=== PATIENT | male | born 1955 ===

== ENCOUNTER 2022-11-25 14:10 | Inpatient (IN) | payer OTHER ==
[2022-11-25 16:08] VITALS: BMI 25.0
[2022-11-25] MEDS ORDERED: BENZOCAINE/MENTHOL (CHLORASEPTIC ) LOZENGE MM PRN (16:46)
[2022-11-25] MEDS ORDERED: ONDANSETRON *ODT* 4 MG TABLET SL PRN (16:46)
[2022-11-25] MEDS ORDERED: IBUPROFEN 400 MG TABLET (FP) PO PRN (16:46)
[2022-11-25] MEDS ORDERED: POLYETHYLENE GLYCOL (HEALTHYLAX) 3350 17 GM PACKET PO PRN (16:46)
[2022-11-25] MEDS ORDERED: NALOXONE HCL (KLOXXADO) 8 MG SPRAY NS PRN (16:46)
[2022-11-25] MEDS ORDERED: LOPERAMIDE HCL 2 MG CAPSULE PO PRN (16:46)
[2022-11-25] MEDS ORDERED: BISMUTH SUBSALICYLATE 524 MG/30 ML PO PRN (16:46)
[2022-11-25] MEDS ORDERED: MAGNESIUM HYDROX 2400MG/30ML ORAL SUSPENSION 30 ML CUP PO PRN (16:46)
[2022-11-25] MEDS ORDERED: MAG HYDROX/AL HYDROX/SIMETH 30 ML UNIT-DOSE CUP PO PRN (16:46)
[2022-11-25] MEDS ORDERED: ACETAMINOPHEN 325 MG TABLET (FP) PO PRN (16:46)
[2022-11-25] MEDS ORDERED: DICYCLOMINE HCL 10 MG CAPSULE PO PRN (16:46)
[2022-11-25] MEDS ORDERED: IBUPROFEN 600 MG TABLET (FP) PO PRN (16:46)
[2022-11-25] MEDS ORDERED: LORazepam 2 MG TABLET PO SCH (17:00)
[2022-11-25] MEDS: ACETAMINOPHEN 325 MG TABLET (FP) PO PRN (17:44)
[2022-11-25] MEDS ORDERED: LORazepam 1 MG TABLET ONE (17:46)
[2022-11-25] MEDS ORDERED: ACETAMINOPHEN 325 MG TABLET (FP) ONE (17:47)
[2022-11-25] MEDS: LORazepam 1 MG TABLET PO PRN (19:20)
[2022-11-25] MEDS: amLODIPine BESYLATE 5 MG TABLET (FP) PO SCH (20:02)
[2022-11-25] MEDS: LOSARTAN POTASSIUM 50 MG TABLET PO SCH (20:02)
[2022-11-25] MEDS: METHOCARBAMOL 500 MG TABLET PO PRN (20:02)
[2022-11-25] MEDS: LORazepam 1 MG TABLET PO SCH (22:03)
[2022-11-25] MEDS: THIAMINE HCL 100 MG TABLET (FP) PO SCH (22:03)
[2022-11-25] MEDS: ROSUVASTATIN CA 5 MG TABLET PO SCH (22:43)
[2022-11-25] MEDS: MELATONIN 5 MG TABLETS PO SCH (23:45)
[2022-11-26] MEDS: LORazepam 1 MG TABLET PO PRN (00:48)
[2022-11-26] MEDS: LORazepam 1 MG TABLET PO SCH ×4 (05:18→22:14)
[2022-11-26] MEDS: metFORMIN HCL 500 MG TABLET (FP) PO SCH ×2 (06:05→16:55)
[2022-11-26] MEDS: sitaGLIPtin PHOSPHATE 50 MG TABLET PO SCH (06:05)
[2022-11-26] MEDS: PIOGLITAZONE HCL 30 MG TABLET PO SCH (06:06)
[2022-11-26] MEDS: REPAGLINIDE 1 MG TABLET PO SCH (06:06)
[2022-11-26] MEDS ORDERED: PATIENT'S OWN MEDICATION (NON-FORMULARY) (Dapagliflozin Propanediol 10 MG Tablet) PO SCH (10:00)
[2022-11-26] MEDS: PRENATAL VITAMINS W/ FOLIC ACID TABLET (FP) PO SCH (10:41)
[2022-11-26] MEDS: amLODIPine BESYLATE 5 MG TABLET (FP) PO SCH (10:41)
[2022-11-26] MEDS: ESCITALOPRAM OXALATE 10 MG TABLET PO SCH (10:42)
[2022-11-26] MEDS: PANTOPRAZOLE 40 MG TABLET PO SCH (10:42)
[2022-11-26] MEDS: LOSARTAN POTASSIUM 50 MG TABLET PO SCH (10:57)
[2022-11-26 11:09] LABS: HEMATOCRIT 34.3 % (35.4-49); HEMOGLOBIN 11.1 GM/dL (11.7-16.9); MCH 27.6 pg (25.7-33.7); MCHC 32.3 g/dl (32.0-35.9); MEAN CELL VOLUME 85.4 fl (80-96); MEAN PLT VOLUME 8.7 fl (7.5-11.1); PLATELET COUNT 173 10^3/uL (134-434); RBC 4.02 M/mm3 (4.00-5.60); RDW 15.1 % (11.9-15.9); WHITE BLOOD COUNT 5.7 K/mm3 (4.0-10.0)
[2022-11-26 11:18] LABS: ALBUMIN 3.6 g/dl (3.4-5.0)
[2022-11-26 11:22] LABS: CREATININE 1.2 mg/dL (0.55-1.3)
[2022-11-26 11:23] LABS: BILIRUBIN,TOTAL 0.8 mg/dL (0.2-1); TOT PROT 6.8 g/dl (6.4-8.2)
[2022-11-26] MEDS: ACETAMINOPHEN 325 MG TABLET (FP) PO PRN (17:01)
[2022-11-26] MEDS: THIAMINE HCL 100 MG TABLET (FP) PO SCH (22:14)
[2022-11-26] MEDS: METHOCARBAMOL 500 MG TABLET PO PRN (22:14)
[2022-11-26] MEDS: MELATONIN 5 MG TABLETS PO SCH (22:14)
[2022-11-26] MEDS: ROSUVASTATIN CA 5 MG TABLET PO SCH (22:14)
[2022-11-27] MEDS: LORazepam 1 MG TABLET PO SCH ×4 (05:06→22:03)
[2022-11-27] MEDS: PATIENT'S OWN MEDICATION (NON-FORMULARY) (Dapagliflozin Propanediol 10 MG Tablet) PO SCH (06:07)
[2022-11-27] MEDS: PIOGLITAZONE HCL 30 MG TABLET PO SCH (06:08)
[2022-11-27] MEDS: sitaGLIPtin PHOSPHATE 50 MG TABLET PO SCH (06:08)
[2022-11-27] MEDS: metFORMIN HCL 500 MG TABLET (FP) PO SCH ×2 (06:08→16:50)
[2022-11-27] MEDS: REPAGLINIDE 1 MG TABLET PO SCH (06:09)
[2022-11-27] MEDS: INSULIN SLIDING SCALE (NOVOLOG) 1 VIAL SQ SCH ×2 (07:50→16:51)
[2022-11-27] MEDS ORDERED: INSULIN (NOVOLOG) ASPART 100 UNITS/ML 10ML VIAL ONE ×3 (07:56→16:48)
[2022-11-27] MEDS: PANTOPRAZOLE 40 MG TABLET PO SCH (10:10)
[2022-11-27] MEDS: PRENATAL VITAMINS W/ FOLIC ACID TABLET (FP) PO SCH (10:11)
[2022-11-27] MEDS: amLODIPine BESYLATE 5 MG TABLET (FP) PO SCH (10:11)
[2022-11-27] MEDS: ESCITALOPRAM OXALATE 10 MG TABLET PO SCH (10:11)
[2022-11-27] MEDS: LOSARTAN POTASSIUM 50 MG TABLET PO SCH (10:11)
[2022-11-27] MEDS: MELATONIN 5 MG TABLETS PO SCH (22:03)
[2022-11-27] MEDS: ROSUVASTATIN CA 5 MG TABLET PO SCH (22:03)
[2022-11-27] MEDS: THIAMINE HCL 100 MG TABLET (FP) PO SCH (22:03)
[2022-11-28] MEDS ORDERED: LORazepam 0.5 MG TABLET PO PRN
[2022-11-28] MEDS: sitaGLIPtin PHOSPHATE 50 MG TABLET PO SCH (05:59)
[2022-11-28] MEDS: REPAGLINIDE 1 MG TABLET PO SCH (05:59)
[2022-11-28] MEDS: metFORMIN HCL 500 MG TABLET (FP) PO SCH ×2 (05:59→16:51)
[2022-11-28] MEDS: LORazepam 0.5 MG TABLET PO SCH ×4 (05:59→22:16)
[2022-11-28] MEDS: PATIENT'S OWN MEDICATION (NON-FORMULARY) (Dapagliflozin Propanediol 10 MG Tablet) PO SCH (05:59)
[2022-11-28] MEDS: INSULIN SLIDING SCALE (NOVOLOG) 1 VIAL SQ SCH ×2 (06:00→16:53)
[2022-11-28] MEDS: PIOGLITAZONE HCL 30 MG TABLET PO SCH (06:00)
[2022-11-28] MEDS: ESCITALOPRAM OXALATE 10 MG TABLET PO SCH (10:09)
[2022-11-28] MEDS: amLODIPine BESYLATE 5 MG TABLET (FP) PO SCH (10:09)
[2022-11-28] MEDS: PRENATAL VITAMINS W/ FOLIC ACID TABLET (FP) PO SCH (10:09)
[2022-11-28] MEDS: LOSARTAN POTASSIUM 50 MG TABLET PO SCH (10:09)
[2022-11-28] MEDS: PANTOPRAZOLE 40 MG TABLET PO SCH (10:09)
[2022-11-28] MEDS ORDERED: INSULIN (NOVOLOG) ASPART 100 UNITS/ML 10ML VIAL ONE (16:49)
[2022-11-28] MEDS: ROSUVASTATIN CA 5 MG TABLET PO SCH (22:16)
[2022-11-28] MEDS: THIAMINE HCL 100 MG TABLET (FP) PO SCH (22:16)
[2022-11-28] MEDS: MELATONIN 5 MG TABLETS PO SCH (22:17)
[2022-11-29] MEDS ORDERED: LORazepam 0.5 MG TABLET PO ONE (05:00)
[2022-11-29 06:01] VITALS: BP 102/74; PULSE 102; RESP 16; TEMP 97.8
[2022-11-29] MEDS: PIOGLITAZONE HCL 30 MG TABLET PO SCH (06:05)
[2022-11-29] MEDS: metFORMIN HCL 500 MG TABLET (FP) PO SCH (06:05)
[2022-11-29] MEDS: sitaGLIPtin PHOSPHATE 50 MG TABLET PO SCH (06:05)
[2022-11-29] MEDS: PATIENT'S OWN MEDICATION (NON-FORMULARY) (Dapagliflozin Propanediol 10 MG Tablet) PO SCH (06:05)
[2022-11-29] MEDS: INSULIN SLIDING SCALE (NOVOLOG) 1 VIAL SQ SCH (06:07)
[2022-11-29] MEDS: REPAGLINIDE 1 MG TABLET PO SCH (06:08)
== END 2022-11-29 08:30 | disposition home or self-care (01) | DRG 897 ==
LOC: YASAS 14:10 → Y6N 17:25
PROVIDERS: ADMIT Allergy & Immunology; ATTEND Surgery
PROC: HZ2ZZZZ Detoxification Services for Substance Abuse Treatment (ICD-10-PCS; principal; 2022-11-25)
DX: F10.230 Alcohol dependence with withdrawal, uncomplicated (principal); F10.280 Alcohol dependence with alcohol-induced anxiety disorder; F10.282 Alcohol dependence with alcohol-induced sleep disorder; F32.A Depression, unspecified; I10 Essential (primary) hypertension; E78.5 Hyperlipidemia, unspecified; K21.9 Gastro-esophageal reflux disease without esophagitis; E11.9 Type 2 diabetes mellitus without complications; Z79.84 Long term (current) use of oral hypoglycemic drugs
CPT/HCPCS: 36415; 80053; 82962; 85027; 86780; C9803-CS; U0003; U0005